=== PATIENT | female | born 1995 | race Caucasian/White ===

== ENCOUNTER 2017-12-03 23:23 | Emergency (ER) | payer MEDICAID ==
[~2017-12-03] VITALS: Ht 154.9 cm; Wt 89.8 kg
[2017-12-04 03:43] VITALS: BP 136/82
== END 2017-12-04 04:39 | disposition home or self-care (01) ==
LOC: ED 23:59 → EDBD 23:59 → ED 12-04 04:39
DX: S80.811A Abrasion, right lower leg, initial encounter (principal); S70.11XA Contusion of right thigh, initial encounter; S40.021A Contusion of right upper arm, initial encounter; S30.1XXA Contusion of abdominal wall, initial encounter; Y04.8XXA Assault by other bodily force, initial encounter; Y93.89 Activity, other specified; Y92.89 Other specified places as the place of occurrence of the external cause; Y99.9 Unspecified external cause status
CPT/HCPCS: 70450; 70486; 71045; 72110; 99284

== ENCOUNTER 2018-04-04 10:00 | Emergency (ER) | payer MEDICAID ==
[~2018-04-04] VITALS: Ht 154.9 cm; Wt 89.0 kg
[2018-04-04 10:07] VITALS: BP 139/61
== END 2018-04-04 12:53 | disposition left against medical advice (07) ==
LOC: ED 11:00
DX: O20.9 Hemorrhage in early pregnancy, unspecified (principal); Z3A.10 10 weeks gestation of pregnancy; Z53.21 Procedure and treatment not carried out due to patient leaving prior to being seen by health care provider

== ENCOUNTER 2018-04-22 20:03 | Inpatient (IN) | payer MEDICARE, MEDICAID ==
[~2018-04-22] VITALS: Ht 157.5 cm; Wt 96.9 kg
[2018-04-22] MEDS ORDERED: MORPHINE SULFATE 4 MG/ML, 1ML IVPush PRN ×2 (20:30→22:30)
[2018-04-22] MEDS ORDERED: SODIUM CHLORIDE FLUSH 10ML SYR IVF ONE (20:30)
[2018-04-22 20:43] LABS: BASOPHILS # (AUTO) 0.11 x10^3/uL (0-0.1); BASOPHILS % (AUTO) 1 % (0-1); EOSINOPHILS # (AUTO) 0.11 x10^3/uL (0-0.4); EOSINOPHILS % (AUTO) 1 % (1-7); LYMPHOCYTES # (AUTO) 2.41 x10^3/uL (1-3.4); LYMPHOCYTES % (AUTO) 27 % (22-44); MD NO; MEAN CORPUSCULAR HEMOGLOBIN 27.1 pg (27.0-34.8); MEAN CORPUSCULAR HGB CONC 33.2 g/dL (32.4-35.8); MEAN CORPUSCULAR VOLUME 81.6 fL (80-100); MEAN PLATELET VOLUME 8.3 fL (7.4-10.4); MONOCYTES # (AUTO) 0.46 x10^3/uL (0.2-0.8); MONOCYTES % (AUTO) 5 % (2-9); NEUTROPHILS # (AUTO) 5.72 x10^3/uL (1.8-6.8); NEUTROPHILS % (AUTO) 65 % (42-75); PLATELET COUNT 274 x10^3/uL (130-400); RED BLOOD COUNT 4.83 x10^6/uL (3.82-5.3); RED CELL DISTRIBUTION WIDTH 15.1 % (9.6-15.2)
[2018-04-22] MEDS ORDERED: MORPHINE SULFATE 4 MG/ML, 1ML ONE ×2 (20:43→22:40)
[2018-04-22 20:55] LABS: ALANINE AMINOTRANSFERASE 22 U/L (12-78); ALBUMIN 3.9 g/dL (3.4-5.0); ANION GAP 10 mmol/L (5-15); CHLORIDE 108 mmol/L (98-107); CREATININE 0.74 mg/dL (0.55-1.02)
[2018-04-22 20:59] LABS: ALKALINE PHOSPHATASE 57 U/L (45-117); BILIRUBIN,TOTAL 0.3 mg/dL (0.2-1.0); TOTAL PROTEIN 7.6 g/dL (6.4-8.2)
[2018-04-22] MEDS ORDERED: SODIUM CHLORIDE 0.9% 1,000 ML IV ONE (22:27)
[2018-04-22] MEDS ORDERED: ONDANSETRON 2MG/ML, 2ML IVPush PRN (22:30)
[2018-04-22] MEDS ORDERED: SODIUM CHLORIDE FLUSH 10ML SYR IVF PRN (22:30)
[2018-04-23 00:57] VITALS: BP 105/55
[2018-04-23 02:00] VITALS: BP 103/52
[2018-04-23] MEDS ORDERED: morphine SULFATE 10 MG/ML, 1ML IVPush PRN (06:30)
[2018-04-23 06:41] LABS: AMPHETAMINE SCREEN, URINE Negative (Negative); BARBITURATE SCREEN, URINE Negative (Negative); BENZODIAZEPINE SCREEN, URINE Negative (Negative); CANNABINOID SCREEN, URINE Negative (Negative); COCAINE SCREEN, URINE Negative (Negative); METHADONE SCREEN, URINE Negative (Negative); OPIATE SCREEN, URINE Positive (Negative)
[2018-04-23 07:39] VITALS: BP 120/79
[2018-04-23] MEDS ORDERED: PROMETHAZINE 25 MG/ML, 1ML IM PRN (08:30)
[2018-04-23] MEDS ORDERED: ALUMINUM/MAG/SIMETHICONE 30 ML UDC PO PRN (08:30)
[2018-04-23] MEDS ORDERED: ONDANSETRON 2MG/ML, 2ML IV PRN (08:30)
[2018-04-23] MEDS ORDERED: MAGNESIUM HYDROXIDE 8%, 30ML UDC PO PRN (08:30)
[2018-04-23] MEDS ORDERED: HYDROcodone/APAP 5/325 TABLET PO PRN (08:30)
[2018-04-23] MEDS ORDERED: ONDANSETRON 4 MG TABLET ONE (08:48)
[2018-04-23] MEDS: SODIUM CHLORIDE 0.9% 1,000 ML IV SCH ×2 (08:51→15:54)
[2018-04-23] MEDS: DOCUSATE 100 MG CAPSULE PO SCH ×2 (08:53→20:04)
[2018-04-23] MEDS: ONDANSETRON ODT 4 MG PO PRN ×2 (08:53→16:34)
[2018-04-23] MEDS ORDERED: SENNA/DOCUSATE TABLET PO PRN (09:00)
[2018-04-23] MEDS ORDERED: BISACODYL 10 MG SUPP PR PRN (09:00)
[2018-04-23 10:03] LABS: ANION GAP 6 mmol/L (5-15); CALCIUM 8.7 mg/dL (8.5-10.1); CHLORIDE 107 mmol/L (98-107); CREATININE 0.61 mg/dL (0.55-1.02)
[2018-04-23] MEDS: HYDROmorphone 1 MG/ML, 1ML IV PRN ×4 (11:20→23:50)
[2018-04-23 13:49] VITALS: BP 137/77
[2018-04-23 18:26] VITALS: BP 119/68
[2018-04-23] MEDS: LORazepam 2 MG/ML, 1ML IV PRN (20:04)
[2018-04-23] MEDS ORDERED: DIPHENHYDRAMINE 25 MG CAPSULE PO PRN (21:00)
[2018-04-24] MEDS: SODIUM CHLORIDE 0.9% 1,000 ML IV SCH ×3 (01:00→18:11)
[2018-04-24 02:32] VITALS: BP 116/60
[2018-04-24] MEDS: LORazepam 2 MG/ML, 1ML IV PRN ×2 (02:45→19:46)
[2018-04-24] MEDS: HYDROmorphone 1 MG/ML, 1ML IV PRN ×4 (03:04→17:03)
[2018-04-24] MEDS ORDERED: FENTANYL PF 250 MCG/5ML ONE (07:42)
[2018-04-24] MEDS ORDERED: MIDAZOLAM 1 MG/ML, 2ML ONE (07:42)
[2018-04-24] MEDS ORDERED: NEOSPORIN OINT, 15GM ONE (07:54)
[2018-04-24] MEDS ORDERED: EPINEPHRINE 1 MG/ML, 1ML ONE (07:54)
[2018-04-24] MEDS ORDERED: BUPIVACAINE/PF 0.5% ONE (07:54)
[2018-04-24] MEDS ORDERED: BACITRACIN 50,000 UNIT ONE (07:54)
[2018-04-24 07:59] VITALS: BP 103/68
[2018-04-24] MEDS: DOCUSATE 100 MG CAPSULE PO SCH ×2 (08:20→19:46)
[2018-04-24] MEDS ORDERED: CEFAZOLIN 1,000 MG ONE (08:36)
[2018-04-24] MEDS ORDERED: PROPOFOL 10 MG/ML, 20ML ONE (08:36)
[2018-04-24] MEDS ORDERED: DEXAMETHASONE 4 MG/ML, 1ML ONE (08:36)
[2018-04-24] MEDS ORDERED: SUCCINYLCHOLINE 20 MG/ML, 10ML ONE (08:36)
[2018-04-24] MEDS ORDERED: MORPHINE SULFATE 4 MG/ML, 1ML IVPush PRN (09:30)
[2018-04-24] MEDS ORDERED: LORazepam 2 MG/ML, 1ML IVPush PRN (09:30)
[2018-04-24] MEDS ORDERED: PROMETHAZINE 12.5 MG SUPP PR PRN (09:30)
[2018-04-24] MEDS ORDERED: FENTANYL PF 100 MCG/2ML IV PRN (09:30)
[2018-04-24] MEDS ORDERED: HYDROcodone/APAP 7.5-325MG/15ML UDC PO PRN (09:30)
[2018-04-24] MEDS ORDERED: OXYcodone 5 MG/5 ML ORAL.SOL UDC PO PRN (09:30)
[2018-04-24] MEDS ORDERED: ONDANSETRON ODT 8 MG PO PRN (09:30)
[2018-04-24] MEDS ORDERED: ACETAMINOPHEN 325 MG TABLET PO PRN (09:30)
[2018-04-24] MEDS ORDERED: MEPERIDINE/PF 50 MG/ML ONE (09:37)
[2018-04-24] MEDS ORDERED: MEPERIDINE/PF 25MG/0.5ML IVPush PRN (10:00)
[2018-04-24] MEDS ORDERED: OXYcodone 5 MG/5 ML ORAL.SOL UDC ONE (10:14)
[2018-04-24] MEDS: OXYcodone 5 MG/5 ML ORAL.SOL UDC PO PRN ×3 (10:17→21:20)
[2018-04-24 14:48] VITALS: BP 141/81
[2018-04-24] MEDS: CEFAZOLIN PMX 2GM/50ML 50 ML IVPB SCH (18:11)
[2018-04-24 19:27] VITALS: BP 112/55
[2018-04-24 23:54] VITALS: BP 122/59
[2018-04-25] MEDS: OXYcodone 5 MG/5 ML ORAL.SOL UDC PO PRN ×5 (01:25→19:56)
[2018-04-25] MEDS: CEFAZOLIN PMX 2GM/50ML 50 ML IVPB SCH ×2 (01:39→10:12)
[2018-04-25] MEDS: SODIUM CHLORIDE 0.9% 1,000 ML IV SCH ×4 (02:19→19:10)
[2018-04-25 03:32] VITALS: BP 110/58
[2018-04-25 07:38] VITALS: BP 114/61
[2018-04-25] MEDS: LORazepam 2 MG/ML, 1ML IV PRN (08:46)
[2018-04-25] MEDS: DOCUSATE 100 MG CAPSULE PO SCH ×2 (08:46→19:56)
[2018-04-25 13:34] VITALS: BP 107/69
[2018-04-25 19:34] VITALS: BP 97/54
[2018-04-26 01:51] VITALS: BP 108/60
[2018-04-26] MEDS: OXYcodone 5 MG/5 ML ORAL.SOL UDC PO PRN ×3 (05:27→14:15)
[2018-04-26 07:07] VITALS: BP 95/61
[2018-04-26] MEDS: DOCUSATE 100 MG CAPSULE PO SCH (09:30)
[2018-04-26] MEDS: SODIUM CHLORIDE 0.9% 1,000 ML IV SCH (10:12)
[2018-04-26] MEDS ORDERED: OXYC5TAB3 PO (11:46)
[2018-04-26 13:40] VITALS: BP 108/69
== END 2018-04-26 15:10 | disposition home or self-care (01) | DRG 494 ==
LOC: ED 21:46 → EDIP 23:06 → 4NOR 23:25 → DCLOUNGE 04-26 14:56
PROVIDERS: ADMIT Orthopaedic Surgery Adult Reconstructive Orthopaedic Surgery; ATTEND Orthopaedic Surgery Adult Reconstructive Orthopaedic Surgery
PROC: 0QSH04Z Reposition Left Tibia with Internal Fixation Device, Open Approach (ICD-10-PCS; principal; 2018-04-22)
DX: S82.302A Unspecified fracture of lower end of left tibia, initial encounter for closed fracture (principal); F12.90 Cannabis use, unspecified, uncomplicated; F17.210 Nicotine dependence, cigarettes, uncomplicated; S82.832A Other fracture of upper and lower end of left fibula, initial encounter for closed fracture; S82.892A Other fracture of left lower leg, initial encounter for closed fracture; W17.89XA Other fall from one level to another, initial encounter; Z88.8 Allergy status to other drugs, medicaments and biological substances; S82.409A Unspecified fracture of shaft of unspecified fibula, initial encounter for closed fracture; Y93.51 Activity, roller skating (inline) and skateboarding; Y92.89 Other specified places as the place of occurrence of the external cause; Y99.8 Other external cause status; F31.9 Bipolar disorder, unspecified; H91.90 Unspecified hearing loss, unspecified ear; Z90.49 Acquired absence of other specified parts of digestive tract
CPT/HCPCS: 36415; 76000; 80048; 80053; 80307; 84703; 85018; 85025; 96374; C1713; J0171; J0690; J1100; J1170; J2175; J2250; J2550; J2704; J3010; J3490; Q0162; J0330; J2060; J2270; J7030

== ENCOUNTER 2018-06-08 18:06 | Inpatient (IN) | payer MEDICARE, MEDICAID ==
[~2018-06-08] VITALS: Ht 167.6 cm; Wt 94.9 kg
[~2018-06-08 18:06] MED LIST: OXYC5TAB3 PO
[2018-06-08] MEDS ORDERED: MORPHINE SULFATE 4 MG/ML, 1ML ONE (18:24)
[2018-06-08] MEDS ORDERED: FAMOTIDINE 20 MG/2 ML ONE (18:24)
[2018-06-08] MEDS ORDERED: FAMOTIDINE 20 MG/2 ML IVP ONE (18:30)
[2018-06-08] MEDS ORDERED: SODIUM CHLORIDE 0.9% 1,000ML IVBOLUS ONE (18:30)
[2018-06-08] MEDS ORDERED: SODIUM CHLORIDE FLUSH 10ML SYR IVF ONE (18:30)
[2018-06-08] MEDS ORDERED: MORPHINE SULFATE 4 MG/ML, 1ML IVPush PRN (18:30)
[2018-06-08 19:19] LABS: BASOPHILS # (AUTO) 0.05 x10^3/uL (0-0.1); BASOPHILS % (AUTO) 1 % (0-1); EOSINOPHILS # (AUTO) 0.04 x10^3/uL (0-0.4); EOSINOPHILS % (AUTO) 1 % (1-7); LYMPHOCYTES % (AUTO) 34 % (22-44); MD NO; MEAN CORPUSCULAR HEMOGLOBIN 25.8 pg (27.0-34.8); MEAN CORPUSCULAR HGB CONC 32.7 g/dL (32.4-35.8); MEAN PLATELET VOLUME 8.8 fL (7.4-10.4); MONOCYTES # (AUTO) 0.32 x10^3/uL (0.2-0.8); MONOCYTES % (AUTO) 7 % (2-9); NEUTROPHILS # (AUTO) 2.72 x10^3/uL (1.8-6.8); NEUTROPHILS % (AUTO) 57 % (42-75); PLATELET COUNT 233 x10^3/uL (130-400); RED BLOOD COUNT 4.64 x10^6/uL (3.82-5.3); RED CELL DISTRIBUTION WIDTH 15.5 % (9.6-15.2)
[2018-06-08 19:30] LABS: ALANINE AMINOTRANSFERASE 679 U/L (12-78); ALBUMIN 3.3 g/dL (3.4-5.0); ANION GAP 9 mmol/L (5-15); CALCIUM 8.3 mg/dL (8.5-10.1); CHLORIDE 110 mmol/L (98-107); CREATININE 0.62 mg/dL (0.55-1.02)
[2018-06-08 19:34] LABS: ALKALINE PHOSPHATASE 209 U/L (45-117); BILIRUBIN,TOTAL 1.3 mg/dL (0.2-1.0); TOTAL PROTEIN 6.8 g/dL (6.4-8.2)
[2018-06-08 20:43] LABS: INTERNATIONAL NORMALIZED RATIO 1.07 (0.93-1.1); PROTHROMBIN TIME 11.1 Seconds (9.6-11.5)
[2018-06-08 21:30] VITALS: BP 127/65
[2018-06-08] MEDS ORDERED: ACETAMINOPHEN 325 MG TABLET PO PRN (21:30)
[2018-06-08] MEDS ORDERED: hydrALAzine 20 MG/ML, 1ML IVPush PRN (21:30)
[2018-06-08] MEDS ORDERED: ONDANSETRON 2MG/ML, 2ML IVPush PRN (21:30)
[2018-06-08] MEDS ORDERED: POLYETHYLENE GLYCOL 17 GM PACKET PO PRN (21:30)
[2018-06-09] MEDS: HEPARIN 5,000 UNITS/ML, 1ML SQ SCH ×3 (01:03→17:22)
[2018-06-09] MEDS: LACTATED RINGERS 1,000 ML IV SCH ×3 (01:05→16:36)
[2018-06-09] MEDS: NICOTINE 14MG/24 HR PATCH.TD24 TD SCH ×2 (01:06→20:43)
[2018-06-09] MEDS: morphine SULFATE 10 MG/ML, 1ML IVPush PRN ×3 (01:45→14:15)
[2018-06-09 01:48] VITALS: BP 166/84
[2018-06-09 04:36] LABS: BASOPHILS # (AUTO) 0.06 x10^3/uL (0-0.1); BASOPHILS % (AUTO) 1 % (0-1); EOSINOPHILS # (AUTO) 0.05 x10^3/uL (0-0.4); EOSINOPHILS % (AUTO) 1 % (1-7); LYMPHOCYTES # (AUTO) 1.42 x10^3/uL (1-3.4); LYMPHOCYTES % (AUTO) 20 % (22-44); MD NO; MEAN CORPUSCULAR HEMOGLOBIN 25.3 pg (27.0-34.8); MEAN CORPUSCULAR HGB CONC 31.9 g/dL (32.4-35.8); MEAN CORPUSCULAR VOLUME 79.2 fL (80-100); MONOCYTES # (AUTO) 0.37 x10^3/uL (0.2-0.8); MONOCYTES % (AUTO) 5 % (2-9); NEUTROPHILS # (AUTO) 5.34 x10^3/uL (1.8-6.8); NEUTROPHILS % (AUTO) 74 % (42-75); PLATELET COUNT 249 x10^3/uL (130-400); RED BLOOD COUNT 4.71 x10^6/uL (3.82-5.3); RED CELL DISTRIBUTION WIDTH 15.2 % (9.6-15.2)
[2018-06-09 04:45] LABS: CHLORIDE 111 mmol/L (98-107)
[2018-06-09 04:51] LABS: ALANINE AMINOTRANSFERASE 591 U/L (12-78); ALBUMIN 3.5 g/dL (3.4-5.0); ALKALINE PHOSPHATASE 214 U/L (45-117); ANION GAP 7 mmol/L (5-15); BILIRUBIN,TOTAL 1.1 mg/dL (0.2-1.0); CALCIUM 8.6 mg/dL (8.5-10.1); TOTAL PROTEIN 6.9 g/dL (6.4-8.2)
[2018-06-09 07:10] VITALS: BP 123/90
[2018-06-09 13:00] VITALS: BP 122/68
[2018-06-09] MEDS: PROMETHAZINE 25 MG/ML, 1ML IM PRN (17:22)
[2018-06-09 19:41] VITALS: BP 128/76
[2018-06-10] MEDS: HEPARIN 5,000 UNITS/ML, 1ML SQ SCH ×3 (01:05→17:00)
[2018-06-10 01:55] VITALS: BP 121/78
[2018-06-10] MEDS: LACTATED RINGERS 1,000 ML IV SCH ×2 (03:00→14:32)
[2018-06-10 05:09] LABS: BASOPHILS # (AUTO) 0.05 x10^3/uL (0-0.1); BASOPHILS % (AUTO) 1 % (0-1); EOSINOPHILS # (AUTO) 0.11 x10^3/uL (0-0.4); EOSINOPHILS % (AUTO) 2 % (1-7); LYMPHOCYTES # (AUTO) 2.51 x10^3/uL (1-3.4); LYMPHOCYTES % (AUTO) 52 % (22-44); MD NO; MEAN CORPUSCULAR HEMOGLOBIN 25.5 pg (27.0-34.8); MEAN CORPUSCULAR HGB CONC 32.4 g/dL (32.4-35.8); MEAN CORPUSCULAR VOLUME 78.5 fL (80-100); MONOCYTES # (AUTO) 0.31 x10^3/uL (0.2-0.8); MONOCYTES % (AUTO) 6 % (2-9); NEUTROPHILS # (AUTO) 1.85 x10^3/uL (1.8-6.8); NEUTROPHILS % (AUTO) 38 % (42-75); PLATELET COUNT 211 x10^3/uL (130-400); RED BLOOD COUNT 4.31 x10^6/uL (3.82-5.3); RED CELL DISTRIBUTION WIDTH 15.4 % (9.6-15.2)
[2018-06-10 05:18] LABS: CHLORIDE 110 mmol/L (98-107)
[2018-06-10 05:35] LABS: % IRON SATURATION 10 % (20-55); ALANINE AMINOTRANSFERASE 342 U/L (12-78); ALBUMIN 2.8 g/dL (3.4-5.0); ALKALINE PHOSPHATASE 162 U/L (45-117); ANION GAP 9 mmol/L (5-15); BILIRUBIN,TOTAL 0.6 mg/dL (0.2-1.0); CALCIUM 7.9 mg/dL (8.5-10.1); CREATININE 0.44 mg/dL (0.55-1.02); IRON LEVEL 31 mcg/dL (50-170); THYROID STIMULATING HORMONE 0.827 mIU/L (0.358-3.740); TOTAL IRON BINDING CAPACITY 320 mcg/dL (250-450); TOTAL PROTEIN 5.9 g/dL (6.4-8.2); TRANSFERRIN 248 mg/dL (200-360)
[2018-06-10 07:10] VITALS: BP 120/78
[2018-06-10] MEDS: PROMETHAZINE 25 MG/ML, 1ML IM PRN ×2 (11:39→21:33)
[2018-06-10 13:15] VITALS: BP 130/81
[2018-06-10 16:03] LABS: HCG UR SG 1.006 (1.003-1.030)
[2018-06-10] MEDS ORDERED: MIDAZOLAM 1 MG/ML, 2ML ONE ×2 (16:24)
[2018-06-10] MEDS ORDERED: FENTANYL PF 250 MCG/5ML ONE ×2 (16:24)
[2018-06-10] MEDS ORDERED: ACETAMINOPHEN 500 MG TABLET ONE ×2 (16:24→16:25)
[2018-06-10] MEDS ORDERED: GABAPENTIN 300 MG CAPSULE ONE ×2 (16:24→16:25)
[2018-06-10] MEDS ORDERED: BUPIVACAINE/PF-EPI 0.5% 1:200K ONE (16:26)
[2018-06-10] MEDS ORDERED: LIDOCAINE-MPF 2% ,5ML ONE (16:35)
[2018-06-10] MEDS ORDERED: ROCURONIUM 10MG/ML,5ML ONE (16:35)
[2018-06-10] MEDS ORDERED: PROPOFOL 10 MG/ML, 20ML ONE (16:35)
[2018-06-10] MEDS ORDERED: CEFOTETAN PMX 2GM/50ML 50 ML ONE (16:37)
[2018-06-10] MEDS ORDERED: DEXAMETHASONE 4 MG/ML, 1ML ONE ×2 (16:37)
[2018-06-10] MEDS ORDERED: NEOSTIGMINE 1 MG/ML, 10ML ONE (16:50)
[2018-06-10] MEDS ORDERED: GLYCOPYRROLATE 0.2MG/1ML, 5ML ONE (16:50)
[2018-06-10] MEDS ORDERED: HALOPERIDOL 5 MG/ML IV PRN (17:00)
[2018-06-10] MEDS ORDERED: FENTANYL PF 100 MCG/2ML IV PRN (17:00)
[2018-06-10] MEDS ORDERED: OXYcodone 5 MG/5 ML ORAL.SOL UDC PO PRN (17:00)
[2018-06-10] MEDS ORDERED: MEPERIDINE/PF 25MG/0.5ML IVPush PRN (17:00)
[2018-06-10] MEDS ORDERED: PROMETHAZINE 12.5 MG SUPP PR PRN (17:00)
[2018-06-10] MEDS ORDERED: LABETALOL 5MG/ML, 20ML IV PRN (17:00)
[2018-06-10] MEDS ORDERED: HYDROmorphone 2 MG/ML, 1ML IV PRN (17:00)
[2018-06-10] MEDS ORDERED: ALBUTEROL SULFATE 2.5 MG/3 ML NPPB PRN (17:00)
[2018-06-10] MEDS ORDERED: ONDANSETRON 2MG/ML, 2ML ONE ×2 (17:03)
[2018-06-10] MEDS ORDERED: KETOROLAC 30 MG/1 ML ONE (17:04)
[2018-06-10] MEDS ORDERED: THROMBIN 5,000 UNIT VIAL TP ONE (17:13)
[2018-06-10] MEDS ORDERED: HALOPERIDOL 5 MG/ML ONE (18:05)
[2018-06-10] MEDS ORDERED: ONDANSETRON 2MG/ML, 2ML IV PRN (19:30)
[2018-06-10] MEDS ORDERED: hydrALAzine 20 MG/ML, 1ML IV PRN (19:30)
[2018-06-10] MEDS ORDERED: ACETAMINOPHEN 650 MG SUPP PR PRN (19:30)
[2018-06-10] MEDS ORDERED: ACETAMINOPHEN 325 MG TABLET PO PRN (19:30)
[2018-06-10 20:00] VITALS: BP 125/69
[2018-06-10] MEDS: NICOTINE 14MG/24 HR PATCH.TD24 TD SCH (21:28)
[2018-06-10] MEDS: HYDROcodone/APAP 5/325 TABLET PO PRN (21:48)
[2018-06-11] VITALS: BP 124/67
[2018-06-11] MEDS: HEPARIN 5,000 UNITS/ML, 1ML SQ SCH ×2 (03:12→11:38)
[2018-06-11] MEDS: LACTATED RINGERS 1,000 ML IV SCH ×2 (03:18→13:00)
[2018-06-11 04:00] VITALS: BP 146/85
[2018-06-11] MEDS: HYDROcodone/APAP 5/325 TABLET PO PRN ×2 (04:23→16:28)
[2018-06-11 05:56] LABS: BASOPHILS # (AUTO) 0.01 x10^3/uL (0-0.1); BASOPHILS % (AUTO) 0 % (0-1); EOSINOPHILS % (AUTO) 0 % (1-7); LYMPHOCYTES # (AUTO) 0.85 x10^3/uL (1-3.4); LYMPHOCYTES % (AUTO) 12 % (22-44); MD NO; MEAN CORPUSCULAR HEMOGLOBIN 25.9 pg (27.0-34.8); MEAN CORPUSCULAR HGB CONC 32.8 g/dL (32.4-35.8); MEAN CORPUSCULAR VOLUME 78.9 fL (80-100); MONOCYTES # (AUTO) 0.39 x10^3/uL (0.2-0.8); MONOCYTES % (AUTO) 5 % (2-9); NEUTROPHILS # (AUTO) 6.14 x10^3/uL (1.8-6.8); NEUTROPHILS % (AUTO) 83 % (42-75); PLATELET COUNT 237 x10^3/uL (130-400); RED BLOOD COUNT 4.49 x10^6/uL (3.82-5.3); RED CELL DISTRIBUTION WIDTH 15.3 % (9.6-15.2)
[2018-06-11 06:00] LABS: CHLORIDE 107 mmol/L (98-107)
[2018-06-11 06:17] LABS: ALANINE AMINOTRANSFERASE 264 U/L (12-78); ALBUMIN 2.9 g/dL (3.4-5.0); ALKALINE PHOSPHATASE 164 U/L (45-117); ANION GAP 7 mmol/L (5-15); BILIRUBIN,TOTAL 0.3 mg/dL (0.2-1.0); CALCIUM 8.1 mg/dL (8.5-10.1); CREATININE 0.67 mg/dL (0.55-1.02); TOTAL PROTEIN 6.2 g/dL (6.4-8.2)
[2018-06-11 07:20] VITALS: BP 111/70
[2018-06-11] MEDS: PROMETHAZINE 25 MG/ML, 1ML IM PRN (09:36)
[2018-06-11 13:25] VITALS: BP 97/63
[2018-06-11] MEDS ORDERED: FERR-51 PO (15:29)
[2018-06-11] MEDS ORDERED: NICO-486 TD (15:29)
[2018-06-11] MEDS ORDERED: ASCO500T6 PO (15:29)
[2018-06-11] MEDS ORDERED: ACET325T14 PO (15:29)
[2018-06-11] MEDS ORDERED: DOCU-131 PO (15:29)
[2018-06-11] MEDS ORDERED: HYDR-3240 PO (16:42)
[2018-06-11] MEDS ORDERED: FERROUS SULFATE 325 MG TABLET PO SCH (21:00)
[2018-06-12] MEDS ORDERED: ASCORBIC ACID 500 MG TABLET PO SCH (09:00)
== END 2018-06-11 17:05 | disposition home or self-care (01) | DRG 418 ==
LOC: ED 19:56 → SUATTDRO 21:14 → 4NOR 21:44
PROVIDERS: ADMIT Hospitalist; ATTEND Hospitalist
PROC: 0FT44ZZ Resection of Gallbladder, Percutaneous Endoscopic Approach (ICD-10-PCS; principal; 2018-06-10 16:45)
DX: K80.61 Calculus of gallbladder and bile duct with cholecystitis, unspecified, with obstruction (principal); E44.1 Mild protein-calorie malnutrition; K76.0 Fatty (change of) liver, not elsewhere classified; E66.01 Morbid (severe) obesity due to excess calories; D50.9 Iron deficiency anemia, unspecified; F17.210 Nicotine dependence, cigarettes, uncomplicated; K76.89 Other specified diseases of liver; F31.9 Bipolar disorder, unspecified; H91.90 Unspecified hearing loss, unspecified ear; Z59.0 Homelessness; Z82.49 Family history of ischemic heart disease and other diseases of the circulatory system; Z83.3 Family history of diabetes mellitus; Z68.33 Body mass index [BMI] 33.0-33.9, adult
CPT/HCPCS: 36415; 76700; 78226; 80053; 80074; 80307; 81025; 82728; 83540; 83550; 83690; 83735; 84100; 84443; 84466; 84703; 85025; 85610; 88304; 96361; 96374; 96375; 99285; J1100; J1644; J1885; J2250; J2405; J2550; J2704; J2710; J3010; J3490; A9537; C9898; J1630; J2270; J7030; J7120; S0028; S0074

== ENCOUNTER 2018-06-20 05:40 | Emergency (ER) | payer MEDICARE, MEDICAID ==
[~2018-06-20] VITALS: Ht 154.9 cm; Wt 87.0 kg
[~2018-06-20 05:40] MED LIST changes: +ACET325T14 PO; +ASCO500T6 PO; +DOCU-131 PO; +FERR-51 PO; +HYDR-3240 PO; +NICO-486 TD
[2018-06-20 06:10] LABS: BASOPHILS # (AUTO) 0.11 x10^3/uL (0-0.1); BASOPHILS % (AUTO) 2 % (0-1); EOSINOPHILS # (AUTO) 0.16 x10^3/uL (0-0.4); EOSINOPHILS % (AUTO) 3 % (1-7); LYMPHOCYTES # (AUTO) 2.35 x10^3/uL (1-3.4); LYMPHOCYTES % (AUTO) 37 % (22-44); MD NO; MEAN CORPUSCULAR HEMOGLOBIN 25.9 pg (27.0-34.8); MEAN CORPUSCULAR HGB CONC 33.4 g/dL (32.4-35.8); MEAN CORPUSCULAR VOLUME 77.5 fL (80-100); MEAN PLATELET VOLUME 8.5 fL (7.4-10.4); MONOCYTES # (AUTO) 0.52 x10^3/uL (0.2-0.8); MONOCYTES % (AUTO) 8 % (2-9); NEUTROPHILS # (AUTO) 3.26 x10^3/uL (1.8-6.8); NEUTROPHILS % (AUTO) 51 % (42-75); PLATELET COUNT 303 x10^3/uL (130-400); RED BLOOD COUNT 4.55 x10^6/uL (3.82-5.3); RED CELL DISTRIBUTION WIDTH 15.4 % (9.6-15.2)
[2018-06-20 06:23] LABS: ALBUMIN 3.3 g/dL (3.4-5.0); CALCIUM 8.8 mg/dL (8.5-10.1); CREATININE 0.58 mg/dL (0.55-1.02)
[2018-06-20 06:32] LABS: ANION GAP 8 mmol/L (5-15); CHLORIDE 112 mmol/L (98-107)
[2018-06-20 08:03] VITALS: BP 117/56
== END 2018-06-20 07:58 | disposition home or self-care (01) ==
LOC: ED 06:10
DX: S82.425A Nondisplaced transverse fracture of shaft of left fibula, initial encounter for closed fracture (principal); X58.XXXA Exposure to other specified factors, initial encounter; Y93.89 Activity, other specified; Y92.89 Other specified places as the place of occurrence of the external cause; Y99.8 Other external cause status
CPT/HCPCS: 29515; 36415; 80048; 82040; 85025; 99285

== ENCOUNTER 2018-12-15 08:36 | Emergency (ER) | payer MEDICARE, MEDICAID ==
[~2018-12-15] VITALS: Ht 154.9 cm; Wt 93.8 kg
[2018-12-15] MEDS ORDERED: FAMOTIDINE 20 MG TABLET PO ONE (09:00)
[2018-12-15] MEDS ORDERED: FAMOTIDINE 20 MG TABLET ONE (09:01)
[2018-12-15 10:23] VITALS: BP 130/70
== END 2018-12-15 10:25 | disposition home or self-care (01) ==
LOC: ED 10:19
DX: L50.0 Allergic urticaria (principal); M25.572 Pain in left ankle and joints of left foot; F31.9 Bipolar disorder, unspecified; Z90.49 Acquired absence of other specified parts of digestive tract
CPT/HCPCS: 73610; 99284; J7512; Q0177

== ENCOUNTER 2019-02-17 08:45 | Emergency (ER) | payer MEDICARE, MEDICAID ==
[~2019-02-17] VITALS: Ht 154.9 cm; Wt 91.9 kg
[2019-02-17 08:47] VITALS: BP 129/65
[2019-02-17] MEDS ORDERED: HYDROcodone/APAP 5/325 TABLET PO ONE (09:30)
[2019-02-17] MEDS ORDERED: HYDROcodone/APAP 5/325 TABLET ONE (09:39)
== END 2019-02-17 10:38 | disposition home or self-care (01) ==
LOC: ED 09:21
DX: S93.412A Sprain of calcaneofibular ligament of left ankle, initial encounter (principal); F31.9 Bipolar disorder, unspecified; Z90.49 Acquired absence of other specified parts of digestive tract; Z90.89 Acquired absence of other organs; W50.2XXA Accidental twist by another person, initial encounter; Y93.02 Activity, running; Y92.480 Sidewalk as the place of occurrence of the external cause; Y99.8 Other external cause status
CPT/HCPCS: 99283